=== PATIENT | female | born 1940 | race African-American/Black ===

== ENCOUNTER 2017-08-01 15:57 | Emergency (ER) | payer OTHER ==
[~2017-08-01] VITALS: Ht 170.2 cm; Wt 74.0 kg
[2017-08-01 20:38] VITALS: BP 147/73
== END 2017-08-01 22:34 | disposition home or self-care (01) ==
LOC: ER 16:25
DX: R09.89 Other specified symptoms and signs involving the circulatory and respiratory systems (principal); E11.9 Type 2 diabetes mellitus without complications; I10 Essential (primary) hypertension
CPT/HCPCS: 70360; 99284